=== PATIENT | female | born 1935 | race Caucasian/White ===

== ENCOUNTER 2021-10-30 12:49 | Inpatient (IN) | payer MEDICARE, OTHER ==
[~2021-10-30] VITALS: Ht 162.6 cm; Wt 60.4 kg
[~2021-10-30 12:49] MED LIST: 3IN1 COMMODE XX; ASPIRIN CHEWABL81 MG PO; ATENOLOL25 MG PO; BACLOFEN 10MG T10 MG PO; CARDIZEM CD180 MG PO; CEFTIN250 MG PO; COUMADIN 1MG TAB1 MG PO; COUMADIN 2MG TAB2 MG PO; FLOMAX0.4 MG PO; FUROSEMIDE 20MG20 MG PO; FUROSEMIDE 40MG40 MG PO; HYDROCORTISO28.35 G1 TOP; LEVALBUTER0.63 MG/3 NEB; NORCO 5-325 TA1 EACH PO; OCUVITE EYE +1 EACH PO; ONDANSETRON ODT4 MG PO; PEPCID AC20 MG PO; PERCOCET 5-3251 EACH PO; POTASSIUM CHLO10 ME1 PO; PREDNISONE 10MG10 MG PO; PREGABALIN25 MG PO; PRINIVIL20 MG PO; TESSALON PERLE100 MG PO; TOPROL XL 50 MG50 MG PO; ULTRA-LIGHT RO1 EACH XX; ULTRAM50 MG PO; VIBRAMYCIN100 MG PO; VITAMIN D32000 UNI2 PO; ZOFRAN ODT4 MG PO/SL
[2021-10-30 13:43] LABS: BASOPHIL 0.1 % (0-2); EOSINOPHIL 1.1 % (0-7); HCT 38.4 % (37.0-47.0); HGB 12.4 g/dl (12.5-16.0); LYMPHOCYTE 4.3 % (15-48); MCH 29.5 pg (25.0-31.0); MCHC 32.3 g/dL (32.0-36.0); MCV 91.2 fL (78.0-100.0); MONOCYTE 3.4 % (0-12); MPV 10.7 fL (6.0-9.5); NRBC 0; PLT 220 K/uL (150-400); RBC 4.21 M/uL (4.20-5.40); RDW 14.3 % (11.5-14.0); WBC 7.9 K/uL (4.0-10.5)
[2021-10-30 13:45] LABS: NEUTROPHIL 90.8 % (41-80)
[2021-10-30 14:11] LABS: ALBUMIN 3.2 g/dL (3.4-5.0); BILIRUBIN - TOTAL 1.4 mg/dL (0.2-1.0); BUN/CREAT RATIO (CALC) 18.6 RATIO; CREATININE 1.45 mg/dL (0.51-0.95); GLOBULIN (CALCULATION) 3.3 g/dL; POTASSIUM 4.1 mmol/L (3.5-5.1); TOTAL PROTEIN 6.5 g/dL (6.4-8.2)
[2021-10-30] MEDS ORDERED: VENTOLIN (2.5 MG/3 M INH (17:43)
[2021-10-30] MEDS ORDERED: BUMEX1 MG PO (17:43)
[2021-10-30] MEDS ORDERED: MOTRIN600 MG PO (17:44)
[2021-10-30] MEDS ORDERED: NEURONTIN300 MG PO (17:44)
[2021-10-30] MEDS ORDERED: ONDANSETRON ODT4 MG PO (17:45)
[2021-10-30] MEDS ORDERED: ULTRAM50 MG PO (17:46)
[2021-10-30] MEDS ORDERED: METOPROLOL SUCC25 MG PO (17:47)
[2021-10-30] MEDS ORDERED: ELIQUIS5 MG PO (17:48)
[2021-10-30 18:11] LABS: BILIRUBIN NEGATIVE (NEGATIVE); BLOOD 2+ Ery/uL (NEGATIVE); CLARITY CLEAR (CLEAR); COLOR YELLOW (YELLOW); GLUCOSE (U) NORMAL (NORMAL); LEUKOCYTES 3+ Leu/uL (NEGATIVE); NITRITE POSITIVE (NEGATIVE); PROTEIN TRACE (LOW) mg/dL (NEGATIVE); SPECIFIC GRAVITY 1.015 (1.001-1.030); UROBILINOGEN 0.2 mg/dL (0.2-1.0)
[2021-10-30 18:36] LABS: BACTERIA 1+; URINARY WBC TNTC
[2021-10-30 18:37] LABS: TRANSITIONAL EPITHELIAL CELLS RARE
[2021-10-31 06:32] LABS: BASOPHIL 0 % (0-2); EOSINOPHIL 2.7 % (0-7); HCT 35.4 % (37.0-47.0); HGB 11.2 g/dl (12.5-16.0); LYMPHOCYTE 14.3 % (15-48); MCH 29.4 pg (25.0-31.0); MCHC 31.6 g/dL (32.0-36.0); MCV 92.9 fL (78.0-100.0); MONOCYTE 9.3 % (0-12); MPV 10.4 fL (6.0-9.5); NEUTROPHIL 73.3 % (41-80); NRBC 0; PLT 185 K/uL (150-400); RBC 3.81 M/uL (4.20-5.40); RDW 14.2 % (11.5-14.0); WBC 4.8 K/uL (4.0-10.5)
[2021-10-31 06:50] LABS: BUN/CREAT RATIO (CALC) 20.5 RATIO; CREATININE 1.22 mg/dL (0.51-0.95); POTASSIUM 3.6 mmol/L (3.5-5.1)
--- NOTE | 2021-10-31 15:50 | NUR ---
10/31 Ms. Wade lives at [facility]. She has 02 at 3 L, portable, rollator, and s. chair. [facility] is current and have been notified of admission. - Please call report to [facility] at: [phone] and fax DS to: .
[2021-11-01 05:38] LABS: BASOPHIL 0.4 % (0-2); EOSINOPHIL 3.4 % (0-7); HCT 35.2 % (37.0-47.0); HGB 10.8 g/dl (12.5-16.0); LYMPHOCYTE 21.8 % (15-48); MCHC 30.7 g/dL (32.0-36.0); MCV 94.6 fL (78.0-100.0); MONOCYTE 11.6 % (0-12); MPV 10.7 fL (6.0-9.5); NEUTROPHIL 62.4 % (41-80); NRBC 0; PLT 159 K/uL (150-400); RBC 3.72 M/uL (4.20-5.40); RDW 14.2 % (11.5-14.0); WBC 5.3 K/uL (4.0-10.5)
[2021-11-01 05:54] LABS: BUN/CREAT RATIO (CALC) 15.9 RATIO; CREATININE 1.26 mg/dL (0.51-0.95); MAGNESIUM 2.2 mg/dL (1.8-2.4); POTASSIUM 3.5 mmol/L (3.5-5.1)
[2021-11-02 05:52] LABS: BASOPHIL 0.4 % (0-2); EOSINOPHIL 3.3 % (0-7); HGB 10.1 g/dl (12.5-16.0); LYMPHOCYTE 24.8 % (15-48); MCH 28.5 pg (25.0-31.0); MCHC 30.6 g/dL (32.0-36.0); MCV 93.2 fL (78.0-100.0); MONOCYTE 10.7 % (0-12); MPV 10.8 fL (6.0-9.5); NEUTROPHIL 60.6 % (41-80); NRBC 0; PLT 165 K/uL (150-400); RBC 3.54 M/uL (4.20-5.40); RDW 14.3 % (11.5-14.0); WBC 4.8 K/uL (4.0-10.5)
[2021-11-02 06:32] LABS: BUN/CREAT RATIO (CALC) 15.9 RATIO; CREATININE 1.07 mg/dL (0.51-0.95); POTASSIUM 3.7 mmol/L (3.5-5.1)
[2021-11-02] MEDS ORDERED: MUCINEX 600MG600 MG PO (11:47)
[2021-11-02] MEDS ORDERED: DIGITEK125 MCG PO (11:47)
[2021-11-02] MEDS ORDERED: DULERA 200 MCG8.8 GM INH (11:47)
[2021-11-02] MEDS ORDERED: CEFDINIR300 MG PO (11:47)
[2021-11-02] MEDS ORDERED: XOPENEX (11.25 MG/3 NEB (11:47)
[2021-11-02] MEDS ORDERED: ULTRAM50 MG PO (11:49)
[2021-11-02] MEDS ORDERED: NEURONTIN300 MG PO (11:49)
--- NOTE | 2021-11-02 11:51 | NUR ---
11/02/21 [facility] has been notified of discharge. Order for increase in 02 was faxed to [facility]. [facility] reports that family wishes to bring patient's portable pulse demand system to the hospital to see if the system keeps 02 sats above 90%. If so, an updated order will be faxed to [facility].
== END 2021-11-02 16:28 | disposition home health service (06) | DRG 871 ==
LOC: FER 12:49 → FMS 15:34
PROVIDERS: Emergency Medicine; Internal Medicine; ADMIT Internal Medicine
DX: A41.9 Sepsis, unspecified organism (principal); J96.01 Acute respiratory failure with hypoxia; J18.9 Pneumonia, unspecified organism; J44.1 Chronic obstructive pulmonary disease with (acute) exacerbation; J44.0 Chronic obstructive pulmonary disease with (acute) lower respiratory infection; N17.9 Acute kidney failure, unspecified; I48.20 Chronic atrial fibrillation, unspecified; I13.0 Hypertensive heart and chronic kidney disease with heart failure and stage 1 through stage 4 chronic kidney disease, or unspecified chronic kidney disease; I50.32 Chronic diastolic (congestive) heart failure; J45.901 Unspecified asthma with (acute) exacerbation; N30.00 Acute cystitis without hematuria; Z66 Do not resuscitate; R65.20 Severe sepsis without septic shock; Z20.822 Contact with and (suspected) exposure to COVID-19; J20.9 Acute bronchitis, unspecified; N18.30 Chronic kidney disease, stage 3 unspecified; M19.90 Unspecified osteoarthritis, unspecified site; I27.20 Pulmonary hypertension, unspecified; Z90.49 Acquired absence of other specified parts of digestive tract; Z90.710 Acquired absence of both cervix and uterus; Z88.0 Allergy status to penicillin; Z88.5 Allergy status to narcotic agent; Z98.890 Other specified postprocedural states; Z88.1 Allergy status to other antibiotic agents; Z88.2 Allergy status to sulfonamides; Z79.899 Other long term (current) drug therapy; Z99.81 Dependence on supplemental oxygen
CPT/HCPCS: 36415; 71045; 80048; 80053; 81001; 83605; 83735; 84145; 84484; 85025; 87040; 87076; 87088; 87186; 93005; 94640; 94667; 94668; 97162; 97166; G0378; J0456; J0696; J0780; J1160; J2405; J7030; J7040; J7050; Q0163; U0002